=== PATIENT | female | born 1955 | race Caucasian/White ===

== ENCOUNTER → 2017-09-11 | Day surgery (SDC) | payer OTHER, BC ==
[~2017-09-11] MED LIST: Lactated Ringers 500 ML IV SCH; Propofol 200 MG/20 ML SDV IV ONE; Sodium Chloride 0.9% 500 ML IV SCH
[2017-09-11 16:25] VITALS: BP 173/100
--- NOTE | 2017-09-14 08:12 | OR ---
DATE OF OPERATION: 09/11/2017 PREOPERATIVE DIAGNOSIS: EPIGASTRIC PAIN. POSTOPERATIVE DIAGNOSIS: EPIGASTRIC PAIN. SURGEON: Brennan Castillo MD PROCEDURE: EGD. ANESTHESIA: ALL PURPOSE CLERK due to reflux and anxiety. COMPLICATIONS: None. SPECIMEN: None. FINDINGS: 1. Full-length EGD. 2. Moderate size hiatal hernia without esophagitis, but significant spontaneous GERD. RECOMMENDATIONS: The patient is on a proton pump therapy. We will follow as an outpatient surgical consultation potentially in the future. INDICATIONS: The patient presented with a 3-day history of severe epigastric and substernal chest pain associated with reflux, it had no been present with her before. She elected to proceed with EGD after we initiated empiric treatment. DESCRIPTION OF PROCEDURE: The patient was prepped and draped, placed in the left lateral decubitus position. A lubricated Olympus gastroscope was inserted over a bit and advanced to cricopharyngeus area and ultimately easily intubated into the esophagus. Esophageal lining was benign in its entire course. The Z- line was crisp and sharp at 36 cm. There was a moderate sized hiatal hernia present with significant spontaneous reflux. No distal esophagitis, stricturing, ulceration, or Swann's changes were seen. The scope was advanced into the stomach through the pylorus and into the second portion of duodenum, this and the duodenal bulb are benign. The scope was brought back into the stomach and retroflexed. The upper fundus and cardia are unremarkable. Hernia was easily visualized from below. Upon straightening, the rest of the fundus and antrum showed no polyps, mass, ulceration or bleeding sites. No signs of peptic ulcer disease. Air was then suctioned, scope removed without complication. JO/JORY /[id number]
== END ==
LOC: CC.SDS 14:34
PROVIDERS: ATTEND Family Medicine
DX: K44.9 Diaphragmatic hernia without obstruction or gangrene (principal); F32.9 Major depressive disorder, single episode, unspecified; Z79.82 Long term (current) use of aspirin; Z79.899 Other long term (current) drug therapy; Z88.8 Allergy status to other drugs, medicaments and biological substances; Z90.710 Acquired absence of both cervix and uterus; Z96.659 Presence of unspecified artificial knee joint
CPT/HCPCS: 43235; J2704

== ENCOUNTER 2017-10-13 07:34 | Emergency (ER) | payer OTHER, BC ==
[2017-10-13 07:45] VITALS: BP 163/95
[2017-10-13] MEDS ORDERED: Lidocaine 1% 20 ML MDV ONE (07:53)
[2017-10-13] MEDS ORDERED: methylPREDNISolone Acetate 80 MG/ML SDV IM ONE (07:56)
[2017-10-13] MEDS ORDERED: cefTRIAXone 1 GM Vial IM ONE (07:56)
[2017-10-13] MEDS ORDERED: Ketorolac 10 MG Tab PO ONE (07:57)
--- NOTE | 2017-10-13 08:02 | EDM.PDOC ---
ED HPI GENERAL MEDICAL PROBLEM - General Chief Complaint: ENT Problem Stated Complaint: EAR INFECTION Time Seen by Provider: 10/13/17 07:49 Source of Information: Reports: Patient History Limitations: Reports: No Limitations - History of Present Illness INITIAL COMMENTS - FREE TEXT/NARRATIVE: Edna is a 61 year old female who presents to the ED with complaints of cold symptoms and right ear pain for the past 4-5 days. She reports nasal congestion and pressure. She reports her right ear has been bother her, but when she woke up this morning the pain was much more severe. She reports she "feels like her ear is going to explode." She reports nasal drainage. Denies any fever or chills. Denies any chest pain, shortness of breath, cough. She has been taking Tylenol and ibuprofen at home. She has been taking OTC nasal decongestants. She has been eating and drinking ok. Onset: Gradual Onset Date: 11/07/17 Duration: Getting Worse Location: Reports: Other (Right Ear) Quality: Reports: Ache Severity: Severe Improves with: Reports: Medication Worsens with: Reports: None Associated Symptoms: Reports: Cough, Other (Sinus Symptoms). Denies: Confusion , Chest Pain, cough w sputum, Diaphoresis, Fever/Chills, Loss of Appetite, Malaise, Nausea/Vomiting, Rash, Seizure, Shortness of Breath, Syncope, Weakness Treatments QUANTITATIVE ANALYST MARKETING: Reports: Acetaminophen, NSAIDS Right Ear Pain Score (Numeric/FACES): 10 - Related Data Allergies Allergy/AdvReac Type Severity Reaction Status Date / Time sulfamethoxazole Allergy Diarrhea Verified 10/13/17 07:39 [From Bactrim] trimethoprim [From Bactrim] Allergy Diarrhea Verified 10/13/17 07:39 Home Meds: Home Meds Meloxicam 15 mg PO DAILY PRN 04/01/16 [History] Venlafaxine HCl [Venlafaxine ER] 75 mg PO DAILY 04/01/16 [History] Cholecalciferol (Vitamin D3) [Vitamin D3] 2 tab PO DAILY 09/11/17 [History] Cyanocobalamin (Vitamin B12) [Vitamin B12] 1 tab PO DAILY 09/11/17 [History] Multivitamin [Multivitamins] 1 tab PO DAILY 09/11/17 [History] ZOLMitriptan [Zolmitriptan] 0.5 tab PO ASDIRECTED PRN 09/11/17 [History] Amoxicillin/Potassium Clav [Augmentin 875-125 Tablet] 1 tab PO Q12H 10 Days #20 tablet 10/13/17 [Rx] Past Medical History Musculoskeletal History: Reports: Arthritis Neurological History: Reports: Headaches, Chronic - Past Surgical History Other Musculoskeletal Surgeries/Procedures:: KNEE SURGERY JUL 2017 Social & Family History - Tobacco Use Smoking Status *Q: Never Smoker Second Hand Smoke Exposure: No ED ROS ENT - Review of Systems Review Of Systems: ROS reveals no pertinent complaints other than HPI. Constitutional: Reports: No Symptoms. Denies: Fever, Chills HEENT: Reports: Ear Pain, Rhinitis, Sinus Problem, Throat Pain. Denies: Ear Discharge, Eye Discharge, Eye Pain, Glasses, Hearing Loss, Nosebleed, Nose Pain , Throat Swelling, Vertigo, Vision Change Respiratory: Reports: Cough. Denies: Shortness of Breath, Wheezing, Pleuritic Chest Pain, Sputum, Hemoptysis Cardiovascular: Reports: No Symptoms. Denies: Chest Pain, Dyspnea on Exertion Endocrine: Reports: No Symptoms GI/Abdominal: Reports: No Symptoms. Denies: Abdominal Pain, Constipation, Diarrhea, Nausea, Vomiting : Reports: No Symptoms. Denies: Dysuria, Frequency, Urgency Musculoskeletal: Reports: No Symptoms Skin: Reports: No Symptoms Neurological: Reports: Headache. Denies: Confusion, Dizziness Psychiatric: Reports: No Symptoms Hematologic/Lymphatic: Reports: No Symptoms Immunologic: Reports: No Symptoms ED EXAM, ENT - Physical Exam Exam: See Below Exam Limited By: No Limitations General Appearance: Alert, WD/WN, Mild Distress Eye Exam: Bilateral Eye: EOMI, Normal Fundi, Normal Inspection, PERRL Ears: Normal External Exam, Normal Canal, Hearing Grossly Normal, TM Bulging ( right), TM Dullness (right), TM Erythema (right). No: Auricular Erythema, Auricular Tenderness, Mastoid Tenderness, Canal Discharge, TM Perforation Nose: Clear Rhinorrhea, Nasal Discharge, Nasal Swelling Mouth/Throat: Normal Gums, Normal Lips, Normal Teeth, Throat Pain, Tonsillar Erythema. No: Dry Mucous Membrane, Peritonsillar Mass, Pharyngeal Erythema, Tonsillar Exudates, Uvular Deviation Head: Atraumatic, Normocephalic Neck: Normal Inspection, Supple, Non-Tender, Full Range of Motion Respiratory/Chest: No Respiratory Distress, Lungs Clear, Normal Breath Sounds, No Accessory Muscle Use, Chest Non-Tender Cardiovascular: Normal Peripheral Pulses, Regular Rate, Rhythm, No Edema, No Gallop, No JVD, No Murmur, No Rub GI/Abdominal: Normal Bowel Sounds, Soft, Non-Tender, No Organomegaly, No Distention, No Abnormal Bruit, No Mass Neurological: Alert, Oriented, CN II-XII Intact, Normal Cognition, Normal Gait, Normal Reflexes, No Motor/Sensory Deficits Psychiatric: Anxious Skin: Warm, Dry, Intact, Normal Color, No Rash Lymphatic: Adenopathy (right anterior cervical) Course - Vital Signs Last Recorded V/S: Last Vital Signs Temp 96.3 F 10/13/17 07:42 Pulse 97 10/13/17 07:42 Resp 20 10/13/17 07:42 BP 163/95 H 10/13/17 07:42 Pulse Ox 94 L 10/13/17 07:42 - Orders/Labs/Meds Meds: Medications Discontinued Medications Generic Name Dose Route Start Last Admin Trade Name Rajni PRN Reason Stop Dose Admin Ceftriaxone Sodium 1 gm 10/13/17 07:56 10/13/17 08:11 Rocephin IM 10/13/17 07:57 1 gm ONETIME ONE Administration Ketorolac Tromethamine 10 mg 10/13/17 07:57 10/13/17 08:04 Toradol PO 10/13/17 07:58 10 mg ONETIME ONE Administration Lidocaine HCl Confirm 10/13/17 07:53 10/13/17 08:11 Xylocaine 1% Administered 10/13/17 07:54 2.1 ml Dose Administration 20 ml .ROUTE .STK-MED ONE Methylprednisolone Acetate 80 mg 10/13/17 07:56 10/13/17 08:10 Depo-Medrol IM 10/13/17 07:57 80 mg ONETIME ONE Administration Departure - Departure Time of Disposition: 07:55 Disposition: Home, Self-Care 01 Condition: Fair Clinical Impression: Otitis media Qualifiers: Chronicity: acute Laterality: right Recurrence: not specified as recurrent Spontaneous tympanic membrane rupture: without spontaneous rupture Sinusitis Qualifiers: Sinusitis location: unspecified location Chronicity: acute Recurrence: non- recurrent Qualified Code(s): J01.90 - Acute sinusitis, unspecified - Discharge Information Prescriptions: Amoxicillin/Potassium Clav [Augmentin 875-125 Tablet] 1 tab PO Q12H 10 Days #20 tablet Instructions: Otitis Media, Adult, [id number], Sinusitis, Adult, [id number] Referrals: Brennan Castillo MD [Primary Care Provider] - Forms: ED Department Discharge Additional Instructions: Antibiotic as prescribed twice daily x 10 days. Biggest side effect is GI upset. Recommend increasing yogurt intake or adding probiotic supplement. Tylenol and ibuprofen as needed for fever/pain Push fluids Follow up with PCP
== END 2017-10-13 08:28 | disposition home or self-care (01) ==
LOC: CC.ED 07:34
DX: H66.91 Otitis media, unspecified, right ear (principal); J01.90 Acute sinusitis, unspecified; Z79.899 Other long term (current) drug therapy; Z88.1 Allergy status to other antibiotic agents; Z88.2 Allergy status to sulfonamides
CPT/HCPCS: 96372; 99282; A9270; J0696; J1040

== ENCOUNTER → 2020-06-21 | Day surgery (SDC) | payer OTHER ==
[~2020-06-21] MED LIST changes: +Dexamethasone 4 MG/ML 5 ML MDV IV ONE; +Glycopyrrolate 0.2 MG/ML SDV IVPUSH ONE; +HYDROmorphone 1 MG/ML Syringe IV ONE; +Ketamine 200 MG/20 ML MDV IV ONE; +Ketorolac 30 MG/ML SDV IVPUSH ONE; +Lactated Ringers 1,000 ML IV SCH; -Lactated Ringers 500 ML IV SCH; +Lidocaine 1% 20 ML MDV ONE; +Midazolam 1 MG/ML 2 ML SDV IV ONE; +Neostigmine Methylsulfate 10 MG/10 ML MDV IV ONE; +Ondansetron 4 MG/2 ML SDV IV ONE; +Rocuronium 50 MG/5 ML Vial IV ONE; -Sodium Chloride 0.9% 500 ML IV SCH; +Succinylcholine 200 MG/10 ML MDV IV ONE; +fentaNYL 100 MCG/2 ML SDV IV ONE
[2020-06-21 16:01] VITALS: BP 151/86; PULSE 87
--- NOTE | 2020-06-21 16:34 | OR ---
DATE OF OPERATION: 06/21/2020 PREOPERATIVE DIAGNOSIS: BLEEDING INTERNAL-EXTERNAL HEMORRHOID COMPLEX. POSTOPERATIVE DIAGNOSIS: BLEEDING INTERNAL-EXTERNAL HEMORRHOID COMPLEX. SURGEON: Sridhar Grady MD PROCEDURE: OPEN INTERNAL AND EXTERNAL HEMORRHOIDECTOMY. ANESTHESIA: General. ESTIMATED BLOOD LOSS: Minimum. SPECIMEN: Hemorrhoids. INDICATIONS: This 64-year-old female has multiple large hemorrhoids. Her main complaint is continual bleeding. By examination, she does have multiple large groups of external hemorrhoids. DESCRIPTION OF PROCEDURE: After adequate preparation, an anoscope was inserted into the rectum. A large right lateral complex was identified as the skin was scored externally and the hemorrhoid lifted off the internal sphincter muscle. A Katina clamp was then used to clamp the hemorrhoid and the hemorrhoid was excised. The edges of the mucosa and skin were then oversewn using a 2-0 Vicryl. The procedure was repeated on the left side, so she ended up with the right lateral and the left lateral internal-external hemorrhoidectomy. She does have one anterior large group that is left. If she still continues to have problems, we may need to do that in another session a few months down the road. The procedure went without difficulty. The patient was taken to recovery room. MAURO/JORY /[id number]
== END ==
LOC: CC.SDS 09:12
PROVIDERS: ATTEND Surgery
DX: K64.4 Residual hemorrhoidal skin tags (principal); K64.8 Other hemorrhoids; F32.9 Major depressive disorder, single episode, unspecified; Z88.1 Allergy status to other antibiotic agents; Z79.899 Other long term (current) drug therapy
CPT/HCPCS: 46260; J0330; J1100; J1170; J1885; J2250; J2405; J2704; J2710; J3010; J3490; J7120; 00902